=== PATIENT | male | born 1945 | race Caucasian/White ===

== ENCOUNTER → 2020-12-27 | Outpatient (CLI) | payer MEDICARE ==
[~2020-12-27] MED LIST: ATOR40TA75 PO; CASO50TA5 PO; FLOM0.4C39 PO; LOSA100T50 PO; MULT1TAB7 PO; OCUV1CAP4 PO; OSTE1TAB2 PO; PRIL20TA2 PO; PROL60SO SC; SYNT50TA PO
--- NOTE | 2020-12-27 11:58 | RADONC.CN ---
Radiation Oncology Hx/Consult Radiation Oncology Consult Date of Service: Dec 27, 2020 Pt Identifier Lul Smith is a 75 year old male with high risk prostate cancer cT1c [place] 4+5=9 (9/16 cores+) PSA 4.7. He was initially on active surveillance and more recently underwent MP MRI prostate which identified more extensive disease which was biopsied showing grade group 5. He is seen for consideration of RT and ADT. Diagnosis/Treatment History Oncologic History Followed by Mychal Corea ([facility]) for BPH, had TURP ~2009. Also what was initially low risk prostate cancer diagnosed in 2010 [place] 3+3=6 at that time. He was followed expectantly until 10/30/20 MRI showed PIRADS 4 left apex, new PIRADS 3 right apex. 55 cc gland. 12/12/20 underwent uronav fusion biopsy: [place] 4+5=9 left mid and apex 9/16 cores + overall Bone scan is pending 01/01/21 PSA history: 01/16/20 3.19 09/06/20 4.66 IPSS 19 MARISELA 18 Interval History Here with his . Has no significant ED at baseline. Has regular BMs daily no BRBPR. He has 2-3x nocturia, incomplete emptying, intermittent stream and daytime frequency/urgency. Is not taking an medication for this at present. Previously took flomax prior to TURP in 2009, TURP was very helpful at the time. Lives in [facility], retired from [employer], lived in [place] 40 years. Past Medical History: Anemia Osteoporosis CAD HTN HPL Hearing loss Shingles Hypothyroid Basal cell carcinoma GERD Past Surgical History: TURP Family History: No family history of cancer Social History: Never smoker Non-drinker Allergies / Meds Home Meds Active Scripts Tamsulosin HCl (Flomax) 0.4 Mg Capsule, 1 CAP PO QPM, #90 CAP 3 Refills Prov:GERRY LAWTON MD 12/27/20 Bicalutamide (Casodex) 50 Mg Tablet, 1 TAB PO DAILY for 30 Days, #30 TAB Prov:GERRY LAWTON MD 12/27/20 Reported Medications Denosumab Injection (Prolia) 60 Mg/1 Ml Syringe, 60 MG SC, SYRINGE 12/27/20 Denosumab Injection (Prolia) 60 Mg/1 Ml Syringe, 1 SYRINGE SC ONCE for 1 Day, #1 ML 12/27/20 Lutein/Zeaxanthin (Ocuvite Lutein 25-5 mg Softgel) 1 Each Capsule, 1 CAP PO DAILY for 30 Days, #30 CAP 12/27/20 Multivitamin with Minerals (Multiple Vitamin) 1 Each Tablet, 1 TAB PO, TAB 12/27/20 Vit D3-Vit K/Berberine/Hops (Ostera Tablet) 1 Each Tablet, 1 TAB PO, TAB 12/27/20 Omeprazole Magnesium (Prilosec Otc) 20 Mg Tablet.dr, 20 MG PO DAILY for 30 Days, #30 TAB 12/27/20 Atorvastatin Calcium (Atorvastatin Calcium) 40 Mg Tablet, 40 MG PO QPM for 30 Days, #30 TAB 12/27/20 Levothyroxine Sodium (Synthroid) 50 Mcg Tablet, 1 TAB PO DAILY for 30 Days, #30 TAB 12/27/20 Losartan Potassium (Losartan Potassium) 100 Mg Tablet, 1 TAB PO DAILY for 30 Days, #30 TAB 12/27/20 Review of Systems Constitutional: Denies: Chills, Fever, Night Sweats Eyes: Denies: Pain, Vision change HEENT: Denies: Head Aches, Dysphagia, Sore Throat Skin: Denies: Rash, Lesions, Bruising Pulmonary: Denies: Dyspnea, Cough Cardiovascular: Denies: Chest Pain, Palpitations, Edema Gastrointestinal: Denies: Nausea, Vomiting, Abdominal Pain, Diarrhea Genitourinary: Reports: Frequency, Retention; Denies: Dysuria, Incontinence, Hematuria Hematologic: Denies: Bruising, Petecchia, Enlarged Lymph Nodes Endocrine: Denies: Cold Intolerance Musculoskeletal: Denies: Neck pain, Back pain Neurological: Denies: Weakness, Numbness, Incoordination Psych: Reports: Mood Normal; Denies: Memory Issues, Thoughts of Self Harm Vital Signs Ht 71" Wt 193 lbs BMI 27 T 97.2 P 67 RR 18 BP 154/93 O2 99 Pain 0 Fatigue 1 General Exam: Positive: Alert, Cooperative, No Acute Distress Eye Exam: Positive: PERRLA, EOMI ENT EXAM: Positive: Mucous membr. moist/pink, Pharynx Normal Neck Exam: Negative: Thyromegaly, Lymphadenopathy Chest Exam: Positive: Normal air movement; Negative: Rales, Rhonchi, Wheezing Heart Exam: Positive: Rate Normal, Regular Rhythm Abdomen Exam: Positive: Soft; Negative: Tenderness, Mass Male Exam: Positive: Lesions (Firm left lobe, no discrete nodule), Normal Sphincter Tone Extremity Exam: Negative: Edema, Tenderness Skin Exam: Positive: Nl turgor and temperature; Negative: Rash Neuro Exam: Positive: Normal Gait, Normal Speech, Cranial Nerves 3-12 NL Psych Exam: Positive: Mental status NL, Mood NL, Memory Intact Diagnostic and Laboratory Diagnostic Review Radiologic images, relevant labs and pathology reports were personally reviewed and discussed with Mr. Smith. Assessment and Plan Impression Mr. Smith is a 75 year old male with a history of high risk prostate cancer cT1c [place] 4+5=9 (9/16 cores+) PSA 4.7. He was initially on active surveillance and more recently underwent MP MRI prostate which identified more extensive disease which was biopsied showing grade group 5. He is seen for consideration of RT and ADT. Stage Stage IIIC T1c [place] 4+5=9 (9/16 cores+) PSA 4.7 Performance Status ECOG 0 Plan We had an extensive discussion with Mr. Smith regarding the diagnosis at hand and available therapeutic options. He has moderate LUTs, some semblance of BPH on MRI and exam. He would benefit from flomax now and hormonal downsizing with treatment. We discussed starting flomax QHS and I explained that ADT, which is part of the treatment plan will help his obstructive voiding. With respect to his disease, he has left-sided high risk cancer, no evidence of elenita involvement, and a pending bone scan next week to complete staging. If he proves to have localized disease, I recommend 78 Gy in 39 fractions with VMAT and coverage of the pelvic LN. In conjunction with this I will give 18 months of lupron. In preparation for lupron I will give him a month of casodex. He would also be an excellent candidate for a SpaceOAR, which will spare him the possibility of late rectal toxicity as well as contribute to preservation of his urinary and sexual function per the QOL results from the phase III. I will place fiducials for IGRT alignment in conjunction with SpaceOAR. He agreed to proceed with the above. We discussed the logistics of receiving radiation therapy in detail including the need for a 1-time planning session. We reviewed the side effects and periprocedural risk of SpaceOAR/fiducial placem ent, ADT; fatigue, cognitive changes, hot flashes, ED, loss of libido and weight gain, and RT; fatigue, irritative voiding symptoms, diarrhea, and late rectal bleeding. After discussing the risks, benefits and alternatives to radiation therapy, Mr. Smith was amenable to pursuing radiotherapy. All questions were answered to the patient's satisfaction. We instructed the patient that if there were any questions,concerns or changes in clinical status in the interim to contact us. Recommendations EBRT 78 Gy in 39 fractions 18 months ADT, 3 month lupron in ~2weeks SpaceOAR/fiducials in the coming weeks Casodex 50 mg daily Flomax 0.4 mg QHS Will follow up 01/01/21 bone scan (above contingent upon negative study) Billing Statement Total time of [65] minutes was spent preparing for the visit [4], obtaining HPI [6], examining the patient [3], reviewing diagnostic tests [4], discussing management options [33], coordinating care [4], and writing this note [11]. GERRY LAWTON MD Dec 27, 2020 11:58
== END ==
LOC: M ONCR 09:44
PROVIDERS: ATTEND General Practice
DX: C61 Malignant neoplasm of prostate (principal); R33.8 Other retention of urine; R31.9 Hematuria, unspecified; R30.0 Dysuria

== ENCOUNTER → 2021-01-01 | Outpatient (CLI) | payer MEDICARE ==
--- NOTE | 2021-01-01 15:58 | REP ---
INDICATION: PROSTATE CA. COMPARISON: None. TECHNIQUE/RADIOTRACER AND DOSE: 22.0 mCi of Technetium-99m MDP was injected and standard whole-body bone scanning is acquired. FINDINGS: There is a normal distribution of skeletal tracer with uptake in bilateral kidneys and in the urinary bladder. There is no evidence to suggest skeletal metastatic disease. IMPRESSION: Negative whole body radionuclide bone scan. <Electronically signed by Mateo Herman > 01/01/21 [id number]
== END ==
LOC: M RAD 10:55 → EDUNIT# 11:00
PROVIDERS: ATTEND Urology
DX: C61 Malignant neoplasm of prostate (principal)
CPT/HCPCS: 78306; A9503

== ENCOUNTER → 2021-01-15 | Outpatient (CLI) | payer MEDICARE ==
[~2021-01-15] MED LIST changes: +LEUPROLIDE 22.5MG KIT (LUPRON DEPOT) (FOR ONCOLOGY) IM ONE; +MYRB25TA PO
--- NOTE | 2021-01-15 14:20 | RADENCPD ---
Date/Time of Encounter Date of Encounter: Jan 15, 2021 Time of Encounter: 14:14 Encounter Met with Andrey prior to his first lupron injection. He explains he has been having a headache since he started flomax and casodex in the wake of our last visit. ACOSTA is 3/10 throughout the day and bothersome. Flomax has helped his urinary frequency and nocturia greatly however. I suspect this is from the flomax. I asked him to hold this for a day or two and see if his ACOSTA resolves. If it does, then we can consider switching to something like myrbetriq if he is interested to help his storage symptoms. If the ACOSTA persists, then it is likely the casodex which he can discontinue 1 week from today as by then the lupron injection should be in effect. He will let me know how this goes. With respect to Soni and his fiducials we are still awaiting insurance approval and will keep him apprised. We reviewed the side effects of ADT today and informed consent was obtained. 22.5 mg of Lupron was given. EGRRY LAWTON MD Jan 15, 2021 14:20
== END ==
LOC: M ONCR 12:52
PROVIDERS: ATTEND General Practice
DX: C61 Malignant neoplasm of prostate (principal)
CPT/HCPCS: 96401; G0463; J9217

== ENCOUNTER → 2021-02-06 | Outpatient (CLI) | payer MEDICARE ==
[~2021-02-06] MED LIST changes: +CIPR-249 PO; -LEUPROLIDE 22.5MG KIT (LUPRON DEPOT) (FOR ONCOLOGY) IM ONE; +LIDOCAINE 2% MDV 20ML VIAL XX ONE; +LIDOCAINE VISCOUS 2% SOLN 15ML UDC XX ONE; +LORA1TAB4 PO
--- NOTE | 2021-02-06 16:06 | ROOPDOC ---
[facility] Report Of Operation Report of Operation [facility] Radiation Oncology SpaceOAR & fiducial marker procedure note Name: Lul SmithZahraaB: 41 Procedure diagnosis: C61.0 Prostate cancer Procedure date/time: 02/06/2021 1200 Physician: Gerry Lawton MD Implant(s): Fiducials (2 seeds per needle): Qfix [id number] Lot# [id number] Exp 04/14/2024 Qty 2 SpaceOAR: [id number] Lot# [id number] Exp 09/27/22 Qty 1 Description of procedure: Informed consent for placement of SpaceOAR and fiducial marker seeds (4) was o btained pre-procedure. A timeout was completed. The patient was placed in the high lithotomy position and a rectal exam with 2% viscous lidocaine was completed. The rectal vault was empty of stool. A chlorhexidine prep of the perineal skin was completed. The trans-rectal ultrasound probe was introduced, the prostate and the rectal bulb were well visualized. 2% lidocaine was infiltrated in the skin and soft tissues of the perineum via a 23 Ga spinal needle under ultrasound guidance. 10cc of local was used. Patient tolerated the block well. Next, fiducial marker seeds were placed via pre-loaded 18 Ga needles under ultrasound guidance. 2 seeds were placed in the left base and apex, respectively. 2 seeds were placed in the right base and apex, respectively. A hydro-dissection of the space between the prostate and rectum was conducted by locating Denonvilliers fascia and injecting 10 cc of isotonic saline through an 18 Ga needle into the potential space there to develop a plane for SpaceOAR implant. Once the hydro-dissection was complete, the needle was withdrawn to mid-gland and the implant needle was then checked in the sagittal and transverse planes for optimal position and once verified, the SpaceOAR implant was placed. The implant was noted to have excellent positioning from base to near-apex. The needle was withdrawn and the ultrasound probe was removed from the rectum. Post procedure vital signs were WNL. The patient tolerated the procedure well without significant discomfort. EBL: <1cc Disposition: Simulation for radiation therapy will occur in the next 1-2 weeks The patient will complete antibiotic prophylaxis this evening GERRY LAWTON MD Feb 06, 2021 16:06
== END ==
LOC: M ONCR 14:52
PROVIDERS: ATTEND General Practice
DX: C61 Malignant neoplasm of prostate (principal)
CPT/HCPCS: 55874; 55876; A4648; C1889

== ENCOUNTER → 2021-02-24 | Outpatient (CLI) | payer MEDICARE ==
[~2021-02-24] MED LIST changes: -LIDOCAINE 2% MDV 20ML VIAL XX ONE; -LIDOCAINE VISCOUS 2% SOLN 15ML UDC XX ONE
--- NOTE | 2021-02-24 12:10 | REP ---
INDICATION: PALPABLE LESION POLE LT testis H/O PROSTATE CA. COMPARISON: None. TECHNIQUE: Real-time sonographic evaluation of scrotum and contents performed. FINDINGS: The testicles are normal in size and echotexture, right testicle measuring 4.5 x 2.2 x 2.7 cm and left testicle 4.5 x 1.9 x 3.1 cm. There is no testicular mass or torsion. Blood flow is seen in each testicle with duplex Doppler evaluation. Couple of scattered microcalcifications are seen in the right testicle with several noted in the left testicle. Small benign cystic changes are seen in the mediastinum testis on the right. The tail of the left epididymis is enlarged and heterogeneous with tiny calcifications, with increased flow with Doppler evaluation suggesting epididymitis. This is likely chronic. This corresponds to the palpable abnormality. IMPRESSION: No testicular mass or torsion. The palpable lump corresponds to the tail of the left epididymis which appears enlarged and heterogeneous with increased flow as discussed above. The findings are suggestive of chronic left-sided epididymitis. <Electronically signed by Boris García > 02/24/21 [id number]
== END ==
LOC: M RAD 11:23
PROVIDERS: ATTEND General Practice
DX: C61 Malignant neoplasm of prostate (principal); N50.89 Other specified disorders of the male genital organs

== ENCOUNTER → 2021-03-14 | Outpatient (RCR) | payer MEDICARE | LOC: M ONCR 02-24 10:16 | PROVIDERS: ATTEND General Practice | DX: C61 Malignant neoplasm of prostate (principal) ==

== ENCOUNTER 2021-04-11 12:39 | Outpatient (RCR) | payer MEDICARE | END 2021-04-14 | LOC: M ONCR 12:39 | PROVIDERS: ATTEND General Practice | DX: C61 Malignant neoplasm of prostate (principal) ==

== ENCOUNTER → 2021-04-17 | Outpatient (CLI) | payer MEDICARE ==
[~2021-04-17] MED LIST changes: +LEUPROLIDE 45MG SYRINGE KIT (LUPRON DEPOT) (FOR ONCOLOGY) IM ONE
--- NOTE | 2021-04-17 13:49 | RADENCPD ---
Date/Time of Encounter Date of Encounter: Apr 17, 2021 Time of Encounter: 13:47 Encounter Andrey presented after treatment for his next lupron injection. He is tolerating treatment with lupron well. We agreed to a 6 month injection this time, thus in October 2021 he will be @ 9 months of ADT (planned for 18 months). His VS are WNL. Informed consent for treatment was previously obtained. Lupron 45 mg was administered following time out and verification of medication patient and dose. GERRY LAWTON MD Apr 17, 2021 13:49
== END ==
LOC: M ONCR 12:53
PROVIDERS: ATTEND General Practice
DX: C61 Malignant neoplasm of prostate (principal)
CPT/HCPCS: 96372; J9217

== ENCOUNTER → 2021-04-21 | Outpatient (CLI) | payer MEDICARE ==
[~2021-04-21] MED LIST changes: +GABA-282 PO; -LEUPROLIDE 45MG SYRINGE KIT (LUPRON DEPOT) (FOR ONCOLOGY) IM ONE; +TAMS1CAP17 PO
[2021-04-21 14:11] LABS: APPEARANCE, URINE CLEAR (CLEAR); BACTERIA, URINE AUTO NEGATIVE (NEGATIVE); BILIRUBIN, URINE AUTO NEGATIVE (NEGATIVE); BLOOD, URINE BLOOD NEGATIVE (NEGATIVE); COLOR, URINE STRAW (YELLOW); GLUCOSE, URINE (UA) AUTO NEGATIVE (NEGATIVE); KETONE, URINE AUTO NEGATIVE (NEGATIVE); LEUKOCYTE ESTERASE, URINE AUTO NEGATIVE (NEGATIVE); NITRITE, URINE AUTO NEGATIVE (NEGATIVE); PROTEIN, URINE AUTO NEGATIVE (NEGATIVE); RBC, URINE AUTO 1 /HPF (0-3); SPECIFIC GRAVITY URINE AUTO 1.003 (1.002-1.035); SQUAMOUS EPITHELIAL CELL UR AU 0 /HPF (0-6); UROBILINOGEN, URINE AUTO 0.2 mg/dL (0.0-2.0); WBC, URINE AUTO 4 /HPF (0-3)
[2021-04-21 14:16] LABS: BASO # 0.1 10^3/uL (0.0-0.2); BASO % 1.5 % (0.0-1.0); EOS # 0.5 10^3/uL (0.0-0.5); EOS % 10.3 % (0.0-3.0); HEMATOCRIT 30.4 % (42.0-52.0); LYMPH # 0.5 10^3/uL (1.5-5.0); LYMPH % 10.1 % (24.0-44.0); MEAN CORPUSCULAR HEMOGLOBIN 33.8 pg (27.0-33.0); MEAN CORPUSCULAR HGB CONC 32.9 g/dl (32.0-36.5); MEAN CORPUSCULAR VOLUME 102.7 fl (80.0-96.0); MONO # 0.6 10^3/uL (0.0-0.8); MONO % 12.9 % (2.0-8.0); NEUTROPHILS % 64.8 % (36.0-66.0); PLATELET COUNT, AUTOMATED 187 10^3/uL (150-450); RED BLOOD COUNT 2.96 10^6/uL (4.30-6.10); WHITE BLOOD COUNT 4.6 10^3/uL (4.0-10.0)
== END ==
LOC: M ONCR 13:31
PROVIDERS: ATTEND General Practice
DX: C61 Malignant neoplasm of prostate (principal); Z79.899 Other long term (current) drug therapy

== ENCOUNTER 2021-05-12 12:47 | Outpatient (RCR) | payer MEDICARE | END 2021-05-14 | LOC: M ONCR 12:47 | PROVIDERS: ATTEND General Practice | DX: C61 Malignant neoplasm of prostate (principal) | CPT/HCPCS: 77300; 77336; 77338; 77385; 77402; G0463 ==

== ENCOUNTER → 2021-08-13 | Outpatient (CLI) | payer MEDICARE ==
[~2021-08-13] MED LIST changes: +PREG100CA PO
--- NOTE | 2021-08-13 11:50 | RADONC ---
Radiation Oncology Hx/FUP Radiation Oncology Hx/FUP Date of Service: Aug 13, 2021 Pt Identifier Lul Smith is a 76 year old male seen for a followup visit today at the department of radiation oncology for a history of high risk prostate cancer cT1c [place] 4+5=9 (9/16 cores+) PSA 4.7. He was initially on active surveillance and more recently underwent MP MRI prostate which identified more extensive disease which was biopsied showing grade group 5. He completed EBRT 78 Gy in 39 fractions from 03/10/21-05/12/21. He has been receiving ADT with plan for 18 months minimum treatment. Diagnosis/Treatment History Oncologic History Followed by Mychal Corea ([facility]) for BPH, had TURP ~2009. Also what was initially low risk prostate cancer diagnosed in 2010 [place] 3+3=6 at that time. He was followed expectantly until 10/30/20 MRI showed PIRADS 4 left apex, new PIRADS 3 right apex. 55 cc gland. 12/12/20 underwent uronav fusion biopsy: [place] 4+5=9 left mid and apex 07/31 cores + overall Bone scan 01/01/21 negative PSA history: 01/16/20 3.19 09/06/20 4.66 07/26/21 <0.02 Testosterone 07/26/21 <3 EBRT 78 Gy in 39 fractions 03/10/21-05/12/21 Lupron shots 01/15/21 22.5 mg 04/17/21 45 mg 10/17/21 plan for 22.5 mg Interval History Andrey has ongoing sciatica type pain in the legs. Starting in the buttocks and goes down the back of the legs. Causes some tingling in the toes. Attributes this to his 2nd lupron injection asking if he can have 3 month injections moving forward. Finds the gabapentin mildly helps, would consider something stronger. No urinary or bowel complaints. Current Therapy ADT min 18 months Stage Prostate cancer Stage IIIC T1c [place] 4+5=9 (9/16 cores+) PSA 4.7 Social History: Never smoker Non-drinker Allergies / Meds Allergies: Coded Allergies: No Known Allergies (Unverified , 01/15/21) Home Meds Active Scripts Pregabalin (Lyrica) 100 Mg Capsule, 1 CAP PO BID MDD 2 Capsule(s) for 30 Days, #60 CAP 3 Refills Prov:BUDNIK,GERRY MD 08/13/21 Reported Medications Tamsulosin Hcl (Tamsulosin HCl) 0.4 Mg Capsule, 1 CAP PO DAILY 05/06/21 Denosumab Injection (Prolia) 60 Mg/1 Ml Syringe, 1 SYRINGE SC ONCE for 1 Day, #1 ML 12/27/20 Lutein/Zeaxanthin (Ocuvite Lutein 25-5 mg Softgel) 1 Each Capsule, 1 CAP PO DAILY for 30 Days, #30 CAP 12/27/20 Multivitamin with Minerals (Multiple Vitamin) 1 Each Tablet, 1 TAB PO, TAB 12/27/20 Vit D3-Vit K/Berberine/Hops (Ostera Tablet) 1 Each Tablet, 1 TAB PO, TAB 12/27/20 Omeprazole Magnesium (Prilosec Otc) 20 Mg Tablet.dr, 20 MG PO DAILY for 30 Days, #30 TAB 12/27/20 Atorvastatin Calcium (Atorvastatin Calcium) 40 Mg Tablet, 40 MG PO QPM for 30 Days, #30 TAB 12/27/20 Levothyroxine Sodium (Synthroid) 50 Mcg Tablet, 1 TAB PO DAILY for 30 Days, #30 TAB 12/27/20 Losartan Potassium (Losartan Potassium) 100 Mg Tablet, 1 TAB PO DAILY for 30 Days, #30 TAB 12/27/20 Discontinued Scripts Gabapentin (Gabapentin) 300 Mg Capsule, 1 CAP PO TID for 30 Days, #90 CAP 3 Refills Prov:GERRY LAWTON MD 05/07/21 Review of Systems Review of Systems Constitutional: Reports: Fatigue; Denies: Night Sweats, Weight Loss Eyes: Denies: Pain HEENT: Denies: Head Aches Skin: Denies: Rash Pulmonary: Denies: Dyspnea, Cough Cardiovascular: Denies: Chest Pain Gastrointestinal: Denies: Abdominal Pain, Hematochezia Genitourinary: Denies: Dysuria, Incontinence Hematologic: Denies: Bruising Musculoskeletal: Reports: Back pain, Leg pain; Denies: Neck pain, Arm pain Neurological: Reports: Numbness; Denies: Weakness Psych: Reports: Mood Normal Physical Examination Vital Signs Wt 187 lbs General Exam: Alert, Cooperative, No Acute Distress Eye Exam: PERRLA, EOMI ENT EXAM: Atraumatic Neck Exam: Supple Chest Exam: Clear to auscultation Heart Exam: Rate Normal Extremity Exam: Negative: Edema Skin Exam: Nl turgor and temperature Neuro Exam: Normal Gait, Normal Speech, Cranial Nerves 3-12 NL Psych Exam: Mental status NL Diagnostic and Laboratory Diagnostic Review Radiologic images, relevant labs and pathology reports were personally reviewed and discussed with Mr. Smith. Assessment and Plan Impression Assessment Mr. Smith is a 76 year old male with a history of high risk prostate cancer cT1c [place] 4+5=9 (9/16 cores+) PSA 4.7. He was initially on active surveillance and more recently underwent MP MRI prostate which identified more extensive disease which was biopsied showing grade group 5. He completed EBRT 78 Gy in 39 fractions from 03/10/21-05/12/21. He has been receiving ADT with plan for 18 months minimum treatment. He is struggling with leg pain, radicular in nature, c/w sciatica. Probably exacerbated by lupron. Will switch to q3m injections per his preference, next due 10/17/21. Will switch to lyrica for his pain as gabapentin wears off between doses. He would like local urology referral so will send to Dr. Baron. PSA and testosterone are appropriately suppressed. He has hematology follow up for his anemia. Performance Status ECOG 1 Plan Follow up on 10/17/21 lupron 22.[address] Baron for urology follow up locally Start lyrica 100 mg BID D/c gabapentin Mr. Smith was encouraged to call with questions or concerns in the interim period. Billing Statement Total time of [28] minutes was spent preparing for the visit [2], obtaining HPI [6], examining the patient [2], reviewing diagnostic tests [3], discussing management options [6], coordinating care [2], and writing this note [7]. GERRY LAWTON MD Aug 13, 2021 11:50
== END ==
LOC: M ONCR 09:50
PROVIDERS: ATTEND General Practice
DX: C61 Malignant neoplasm of prostate (principal); M79.604 Pain in right leg; M79.605 Pain in left leg; Z79.899 Other long term (current) drug therapy; Z92.3 Personal history of irradiation

== ENCOUNTER → 2021-08-27 | Outpatient (CLI) | payer MEDICARE ==
[~2021-08-27] MED LIST changes: +CALC1TAB42 PO; +D31000TA2 PO; +IRON18TA PO; +LEVO75TA4 PO; +PROHANCE 279.3MG/ML 15ML VIAL As Ordered ONE; +PROHANCE 279.3MG/ML 5ML VIAL As Ordered ONE; +ZADI1DRO OU
--- NOTE | 2021-08-27 22:32 | REPVR ---
PROCEDURE INFORMATION: Exam: MR Lumbar Spine Without and With Contrast Exam date and time: 08/27/2021 12:16 PM Age: 76 years old Clinical indication: Low back pain; Additional info: Prostate CA TECHNIQUE: Imaging protocol: Multiplanar magnetic resonance images of the lumbar spine without and with intravenous contrast. Contrast material: PROHANCE; Contrast volume: 16 ml; Contrast route: INTRAVENOUS (IV); COMPARISON: NM Bone Scan Whole Body 01/01/2021 1:36 PM FINDINGS: S-shaped scoliosis of the lumbar spine. Well-marginated round 2.5 cm T1/T2 isointense and STIR hyperintense lesion within the L5 vertebral body, most likely reflecting vertebral body hemangioma. Modic type 1 edematous degenerative endplate change at L2-L3 and L4-L5. 1 cm grade 1 anterolisthesis of L5 on S1. Vertebral body heights are maintained. No cord compression. No abnormal cord signal. Conus medullaris terminates at the L1 level. Paravertebral soft tissues are unremarkable. L1-L2: Broad-based disc bulge causes mild bilateral foraminal narrowing. No significant canal narrowing. L2-L3: Broad-based disc bulge causes moderate bilateral foraminal narrowing. No significant canal narrowing. L3-L4: Broad-based disc bulge and facet hypertrophy cause moderate bilateral foraminal narrowing. No significant canal narrowing. L4-L5: Broad-based disc bulge and facet hypertrophy cause mild left and severe right foraminal narrowing with compression of the exiting right L4 nerve root. No significant canal narrowing. L5-S1: Combination of anterolisthesis, broad-based disc bulge, and facet hypertrophy cause severe bilateral foraminal narrowing with compression of the bilateral exiting L5 nerve roots. No significant canal narrowing. IMPRESSION: 1. Multilevel advanced spondylotic changes of the lumbar spine, as detailed above. 2. Well-marginated round 2.5 cm T1/T2 isointense and STIR hyperintense lesion within the L5 vertebral body, most likely reflecting vertebral body hemangioma Electronically signed by: Anoml Colby On 08/27/2021 22:31:22 PM
== END ==
LOC: M RAD 10:26
PROVIDERS: ATTEND Nurse Practitioner Adult Health
DX: C61 Malignant neoplasm of prostate (principal); M81.0 Age-related osteoporosis without current pathological fracture; M54.31 Sciatica, right side
CPT/HCPCS: 72158; A9576

== ENCOUNTER → 2021-10-28 | Outpatient (CLI) | payer MEDICARE ==
[~2021-10-28] MED LIST changes: +LEUPROLIDE 22.5MG KIT (LUPRON DEPOT) (FOR ONCOLOGY) IM ONE; -PROHANCE 279.3MG/ML 15ML VIAL As Ordered ONE; -PROHANCE 279.3MG/ML 5ML VIAL As Ordered ONE
--- NOTE | 2021-10-28 12:44 | RADONC ---
Radiation Oncology Hx/FUP Radiation Oncology Hx/FUP Date of Service: Oct 28, 2021 Pt Identifier Lul Smith is a 76 year old male seen for a followup visit today at the department of radiation oncology for a history of high risk prostate cancer cT1c Chris 4+5=9 (9/16 cores+) PSA 4.7. He was initially on active surveillance and more recently underwent MP MRI prostate which identified more extensive disease which was biopsied showing grade group 5. He completed EBRT 78 Gy in 39 fractions from 03/10/21-05/12/21. He has been receiving ADT with plan for 18 months minimum treatment. Diagnosis/Treatment History Oncologic History Followed by Mychal Corea ([facility]) for BPH, had TURP ~2009. Also what was initially low risk prostate cancer diagnosed in 2010 [place] 3+3=6 at that time. He was followed expectantly until 10/30/20 MRI showed PIRADS 4 left apex, new PIRADS 3 right apex. 55 cc gland. 12/12/20 underwent uronav fusion biopsy: Chris 4+5=9 left mid and apex 9/ cores + overall Bone scan 01/01/21 negative PSA history: 01/16/20 3.19 09/06/20 4.66 07/26/21 <0.02 08/26/21 <0.01 Testosterone 07/26/21 <3 EBRT 78 Gy in 39 fractions 03/10/21-05/12/21 Lupron shots 01/15/21 22.5 mg 04/17/21 45 mg 10/28/21 22.5 mg (prefers 3 month shots) Interval History Andrey reports that he did not tolerate lyrica well for his back pain, switched back to gabapentin. Both lyrica and gabapentin seem to cause ankle swelling. Recently had MRI of the spine, showing lumbar stenosis, which explains leg pain. Going to receive some epidural injections @ [facility] upcoming. Bowel and bladder function stable, no complaints. Appetite and weight stable. Current Therapy ADT 18 months planned Stage Prostate cancer Stage IIIC T1c Chris 4+5=9 (9/16 cores+) PSA 4.7 Social History: Never smoker Non-drinker Allergies / Meds Allergies: Coded Allergies: No Known Allergies (Unverified , 01/15/21) Home Meds Reported Medications Calcium Carbonate/Vitamin D3 (Calcium 500-Vit D3 600 Tablet) 1 Each Tablet, 1 TAB PO DAILY for 30 Days, #30 TAB 08/21/21 Ketotifen Fumarate (Zaditor) 5 Ml Drops, 1 DROP OU PRN, #5 ML 08/21/21 Iron (Iron) 18 Mg Tablet, 18 MG PO DAILY, TAB 08/21/21 Cholecalciferol (Vitamin D3) (Vitamin D3) 1,000 Unit Tablet, 2000 UNITS PO DAILY, TAB 08/21/21 Levothyroxine Sodium (LEVOTHYROXINE SODIUM) 75 Mcg Tablet, 1 TAB PO DAILY 08/21/21 Tamsulosin Hcl (Tamsulosin HCl) 0.4 Mg Capsule, 1 CAP PO DAILY 05/06/21 Denosumab Injection (Prolia) 60 Mg/1 Ml Syringe, 1 SYRINGE SC ONCE for 1 Day, #1 ML 12/27/20 Lutein/Zeaxanthin (Ocuvite Lutein 25-5 mg Softgel) 1 Each Capsule, 1 CAP PO DAILY for 30 Days, #30 CAP 12/27/20 Multivitamin with Minerals (Multiple Vitamin) 1 Each Tablet, 1 TAB PO DAILY, TAB 12/27/20 Omeprazole Magnesium (Prilosec Otc) 20 Mg Tablet.dr, 20 MG PO 5XW for 30 Days, #30 TAB 12/27/20 Atorvastatin Calcium (Atorvastatin Calcium) 40 Mg Tablet, 40 MG PO QPM for 30 Days, #30 TAB 12/27/20 Losartan Potassium (Losartan Potassium) 100 Mg Tablet, 1 TAB PO DAILY for 30 Days, #30 TAB 12/27/20 Review of Systems Review of Systems Gastrointestinal: Denies: Diarrhea, Hematochezia Genitourinary: Denies: Dysuria, Frequency, Retention Musculoskeletal: Reports: Back pain Neurological: Reports: Weakness, Numbness Psych: Reports: Mood Normal Physical Examination Vital Signs Wt 199 lbs T 96.3 P 60 RR 17 BP 144/83 O2 98% Pain 3 (back) Fatigue 0 General Exam: Alert, Cooperative, No Acute Distress Eye Exam: PERRLA, EOMI ENT EXAM: Atraumatic Neck Exam: Supple Abdomen Exam: Soft Extremity Exam: Edema (LE 2+ to the mid beltrán symmetric), Normal pulses; Negative: Tenderness Neuro Exam: Normal Gait, Normal Speech, Cranial Nerves 3-12 NL Psych Exam: Mental status NL Diagnostic and Laboratory Diagnostic Review Radiologic images, relevant labs and pathology reports were personally reviewed and discussed with Mr. Smith. Assessment and Plan Impression Assessment Mr. Smith is a 76 year old male with a history of high risk prostate cancer cT1c [place] 4+5=9 (9/16 cores+) PSA 4.7. He was initially on active surveillance and more recently underwent MP MRI prostate which identified more extensive disease which was biopsied showing grade group 5. He completed EBRT 78 Gy in 39 fractions from 03/10/21-05/12/21. He has been receiving ADT with plan for 18 months minimum treatment. PSA is appropriately suppressed as of last check. His low back pain has been shown to be the result of spinal stenosis for which he is receiving treatment in [place]. He can continue the gabapentin for now. We will proceed with a 22.5 mg lupron injection today, this will bring him to the 1 year jenna. Thus he will need 2 additional 3 month injections to complete therapy, next in January 2022. For his LE swelling, I suggest compression stockings. Performance Status ECOG 1 Plan Lupron 22.5 mg today Follow up in January 2022 for next injection Will obtain PSA at next visit Compression stocking for dependent LE edema Mr. Smith was encouraged to call with questions or concerns in the interim period. Billing Statement Total time of [22] minutes was spent preparing for the visit [1], obtaining HPI [5], examining the patient [2], reviewing diagnostic tests [2], discussing management options [4], coordinating care [1], and writing this note [7]. GERRY LAWTON MD Oct 28, 2021 12:44
== END ==
LOC: M ONCR 10:52
PROVIDERS: ATTEND General Practice
DX: C61 Malignant neoplasm of prostate (principal); M99.53 Intervertebral disc stenosis of neural canal of lumbar region; Z92.3 Personal history of irradiation; Z79.899 Other long term (current) drug therapy
CPT/HCPCS: G0463; J9217

== ENCOUNTER → 2022-02-03 | Outpatient (CLI) | payer MEDICARE ==
[~2022-02-03] MED LIST changes: -D31000TA2 PO; +LOSA100T45 PO; -LOSA100T50 PO; +VITA100093 PO
== END ==
LOC: M ONCR 09:49
PROVIDERS: ATTEND General Practice
DX: C61 Malignant neoplasm of prostate (principal)
CPT/HCPCS: G0463; J9217

== ENCOUNTER → 2022-04-20 | Outpatient (REF) | payer MEDICARE ==
[~2022-04-20] MED LIST changes: -LEUPROLIDE 22.5MG KIT (LUPRON DEPOT) (FOR ONCOLOGY) IM ONE
[2022-04-20 12:05] LABS: BASO % 1.1 % (0.0-1.0); EOS # 0.2 10^3/uL (0.0-0.5); EOS % 4.3 % (0.0-3.0); HEMATOCRIT 33.2 % (42.0-52.0); HEMOGLOBIN 11.1 g/dl (13.5-17.5); LYMPH # 0.7 10^3/uL (1.5-5.0); LYMPH % 19.2 % (24.0-44.0); MEAN CORPUSCULAR HEMOGLOBIN 33.2 pg (27.0-33.0); MEAN CORPUSCULAR HGB CONC 33.4 g/dl (32.0-36.5); MEAN CORPUSCULAR VOLUME 99.4 fl (80.0-96.0); MONO # 0.4 10^3/uL (0.0-0.8); MONO % 10.6 % (2.0-8.0); NEUTROPHILS # 2.4 10^3/uL (1.5-8.5); NEUTROPHILS % 64.5 % (36.0-66.0); PLATELET COUNT, AUTOMATED 157 10^3/uL (150-450); RED BLOOD COUNT 3.34 10^6/uL (4.30-6.10); WHITE BLOOD COUNT 3.7 10^3/uL (4.0-10.0)
== END ==
LOC: M LABDRAWC 11:09
PROVIDERS: ATTEND Specialist
DX: C61 Malignant neoplasm of prostate (principal)

== ENCOUNTER → 2022-04-21 | Outpatient (CLI) | payer MEDICARE ==
[~2022-04-21] VITALS: Ht 175.3 cm; Wt 82.7 kg
[2022-04-21] MEDS: LEUPROLIDE 22.5MG KIT (LUPRON DEPOT) (FOR ONCOLOGY) IM SCH (14:03)
[2022-04-21 14:21] VITALS: BP 127/85
== END ==
LOC: M ONCR 13:57
PROVIDERS: ATTEND General Practice
DX: C61 Malignant neoplasm of prostate (principal); Z92.3 Personal history of irradiation; Z79.818 Long term (current) use of other agents affecting estrogen receptors and estrogen levels
CPT/HCPCS: 96402; J9217

== ENCOUNTER → 2022-04-21 | Outpatient (CLI) | payer MEDICARE ==
[~2022-04-21] VITALS: Ht 175.3 cm; Wt 82.7 kg
[~2022-04-21] MED LIST changes: +ASPE4PAD TOP; +GABA-1171 PO; +METH-1164 PO; +TRAM50TA2 PO
[2022-04-21 13:50] VITALS: BP 127/85
== END ==
LOC: M ONCR 13:14
PROVIDERS: ATTEND General Practice
DX: C61 Malignant neoplasm of prostate (principal); R20.2 Paresthesia of skin; Z79.818 Long term (current) use of other agents affecting estrogen receptors and estrogen levels; Z79.899 Other long term (current) drug therapy; Z92.3 Personal history of irradiation

== ENCOUNTER 2022-05-23 04:26 | Emergency (ER) | payer MEDICARE ==
[~2022-05-23] VITALS: Ht 177.8 cm; Wt 82.1 kg
[~2022-05-23 04:26] MED LIST changes: -ASPE4PAD TOP; -GABA-1171 PO; -METH-1164 PO; -TRAM50TA2 PO
[2022-05-23] MEDS ORDERED: GABA-1171 PO (04:36)
[2022-05-23] MEDS ORDERED: ACETAMINOPHEN 500 MG TAB PO ONE (06:40)
[2022-05-23] MEDS ORDERED: methocarbamoL 750 MG TAB PO ONE (06:40)
[2022-05-23] MEDS ORDERED: ASPE4PAD TOP (08:46)
[2022-05-23] MEDS ORDERED: METH-1164 PO (08:46)
[2022-05-23 09:17] VITALS: BP 132/80
== END 2022-05-23 09:20 | disposition home or self-care (01) ==
LOC: M ED 04:26
DX: M54.17 Radiculopathy, lumbosacral region (principal); I10 Essential (primary) hypertension; E78.5 Hyperlipidemia, unspecified; E03.9 Hypothyroidism, unspecified; F17.200 Nicotine dependence, unspecified, uncomplicated; Z79.899 Other long term (current) drug therapy; Z79.890 Hormone replacement therapy; Z85.46 Personal history of malignant neoplasm of prostate; Z98.890 Other specified postprocedural states

== ENCOUNTER → 2022-08-21 | Outpatient (CLI) | payer MEDICARE ==
[~2022-08-21] MED LIST changes: +ASPE4PAD TOP; +GABA-1171 PO; +METH-1164 PO; +TRAM50TA2 PO
== END ==
LOC: M RAD 12:16
PROVIDERS: ATTEND Orthopaedic Surgery
DX: G57.22 Lesion of femoral nerve, left lower limb (principal); M41.86 Other forms of scoliosis, lumbar region; M43.17 Spondylolisthesis, lumbosacral region; M48.061 Spinal stenosis, lumbar region without neurogenic claudication

== ENCOUNTER → 2022-10-19 | Outpatient (REF) | payer MEDICARE ==
[~2022-10-19] MED LIST changes: +GABA600T4
[2022-10-19 19:14] LABS: PROSTATIC SPECIFIC AG MONITOR 0.04 NG/ML (< 4.00)
== END ==
LOC: M LAB REF 16:57
PROVIDERS: ATTEND General Practice
DX: R20.2 Paresthesia of skin (principal)

== ENCOUNTER → 2022-10-19 | Outpatient (REF) | payer MEDICARE ==
[2022-10-19 18:27] LABS: BASO # 0.1 10^3/uL (0.0-0.2); BASO % 1.3 % (0.0-1.0); EOS # 0.7 10^3/uL (0.0-0.5); EOS % 12.5 % (0.0-3.0); HEMATOCRIT 27.7 % (42.0-52.0); HEMOGLOBIN 8.9 g/dl (13.5-17.5); LYMPH # 0.5 10^3/uL (1.5-5.0); LYMPH % 9.9 % (24.0-44.0); MEAN CORPUSCULAR HEMOGLOBIN 33.8 pg (27.0-33.0); MEAN CORPUSCULAR HGB CONC 32.1 g/dl (32.0-36.5); MEAN CORPUSCULAR VOLUME 105.3 fl (80.0-96.0); MONO # 0.5 10^3/uL (0.0-0.8); MONO % 9.9 % (2.0-8.0); NEUTROPHILS # 3.5 10^3/uL (1.5-8.5); NEUTROPHILS % 65.1 % (36.0-66.0); PLATELET COUNT, AUTOMATED 255 10^3/uL (150-450); RED BLOOD COUNT 2.63 10^6/uL (4.30-6.10); WHITE BLOOD COUNT 5.4 10^3/uL (4.0-10.0)
[2022-10-19 19:12] LABS: ALBUMIN 2.7 G/DL (3.2-5.2); ALKALINE PHOSPHATASE 92 U/L (46-116); ALT/SGPT 22 U/L (7.0-40); AST/SGOT 28 U/L (<34); BILIRUBIN,TOTAL 0.4 MG/DL (0.3-1.2); BLOOD UREA NITROGEN 14 MG/DL (9-23); CALCIUM LEVEL 8.4 MG/DL (8.3-10.6); CARBON DIOXIDE LEVEL 26 MMOL/L (20-31); CHLORIDE LEVEL 105 MMOL/L (98-107); CREATININE FOR GFR 0.85 MG/DL (0.70-1.30); GLOMERULAR FILTRATION RATE > 60.0 (>42); GLUCOSE, FASTING 84 MG/DL (74-106); POTASSIUM SERUM 5.1 MMOL/L (3.5-5.1); SODIUM LEVEL 138 MMOL/L (136-145); TOTAL PROTEIN 5.3 G/DL (5.7-8.2)
== END ==
LOC: M LABDRAWC 16:52
PROVIDERS: ATTEND Specialist
DX: R20.2 Paresthesia of skin (principal); R97.20 Elevated prostate specific antigen [PSA]

== ENCOUNTER → 2022-10-19 | Outpatient (REF) | payer MEDICARE | LOC: M LABDRAWC 17:02 | DX: R20.2 Paresthesia of skin (principal) ==

== ENCOUNTER → 2022-10-21 | Outpatient (CLI) | payer MEDICARE | LOC: M ONCR 13:36 | PROVIDERS: ATTEND General Practice | DX: C61 Malignant neoplasm of prostate (principal); G57.92 Unspecified mononeuropathy of left lower limb; N52.9 Male erectile dysfunction, unspecified; R15.9 Full incontinence of feces; Z79.890 Hormone replacement therapy; Z79.899 Other long term (current) drug therapy; Z92.23 Personal history of estrogen therapy; Z92.29 Personal history of other drug therapy ==

== ENCOUNTER → 2022-11-02 | Outpatient (CLI) | payer MEDICARE | LOC: M PLAIMG 06:37 | PROVIDERS: ATTEND General Practice | DX: C61 Malignant neoplasm of prostate (principal); M51.84 Other intervertebral disc disorders, thoracic region ==

== ENCOUNTER → 2023-10-26 | Outpatient (CLI) | payer MEDICARE ==
[~2023-10-26] MED LIST changes: +LORA1TAB23 PO; -LORA1TAB4 PO; -LOSA100T45 PO; +LOSA100T46 PO
[2023-10-26 14:35] LABS: INR 1.12
[2023-10-26 14:36] LABS: PARTIAL THROMBOPLASTIN TIME 30.1 SECONDS (24.8-34.2)
== END ==
LOC: M LAB 13:20
PROVIDERS: ATTEND Specialist
DX: C61 Malignant neoplasm of prostate (principal); Z86.39 Personal history of other endocrine, nutritional and metabolic disease; Z51.89 Encounter for other specified aftercare

== ENCOUNTER → 2023-10-27 | Outpatient (CLI) | payer MEDICARE | LOC: M ONCR 12:47 | PROVIDERS: ATTEND General Practice | DX: C61 Malignant neoplasm of prostate (principal); Z71.2 Person consulting for explanation of examination or test findings; Z79.890 Hormone replacement therapy; Z79.899 Other long term (current) drug therapy; Z92.29 Personal history of other drug therapy; Z92.3 Personal history of irradiation ==

== ENCOUNTER → 2024-03-03 | Outpatient (REF) | payer MEDICARE | LOC: M SFHCCLAY 09:34 | PROVIDERS: ATTEND Urology | DX: R97.20 Elevated prostate specific antigen [PSA] (principal) ==

== ENCOUNTER → 2024-04-25 | Outpatient (REF) | payer MEDICARE ==
[2024-04-25 18:27] LABS: BASO # 0.1 10^3/uL (0.0-0.2); EOS # 0.1 10^3/uL (0.0-0.5); EOS % 1.4 % (0.0-3.0); HEMATOCRIT 34.4 % (42.0-52.0); LYMPH # 0.8 10^3/uL (1.5-5.0); LYMPH % 16.1 % (24.0-44.0); MEAN CORPUSCULAR HEMOGLOBIN 35.6 pg (27.0-33.0); MEAN CORPUSCULAR HGB CONC 34.9 g/dl (32.0-36.5); MEAN CORPUSCULAR VOLUME 102.1 fl (80.0-96.0); MONO # 0.4 10^3/uL (0.0-0.8); MONO % 8.7 % (2.0-8.0); NEUTROPHILS # 3.5 10^3/uL (1.5-8.5); NEUTROPHILS % 72.4 % (36.0-66.0); PLATELET COUNT, AUTOMATED 175 10^3/uL (150-450); RED BLOOD COUNT 3.37 10^6/uL (4.30-6.10); WHITE BLOOD COUNT 4.8 10^3/uL (4.0-10.0)
[2024-04-25 18:34] LABS: PROSTATIC SPECIFIC AG MONITOR 0.04 NG/ML (< 4.00)
[2024-04-25 18:37] LABS: ALBUMIN 3.9 G/DL (3.2-5.2); ALKALINE PHOSPHATASE 66 U/L (46-116); ALT/SGPT 26 U/L (7.0-40); AST/SGOT 26 U/L (<34); BILIRUBIN,TOTAL 0.8 MG/DL (0.3-1.2); BLOOD UREA NITROGEN 15 MG/DL (9-23); CALCIUM LEVEL 9.6 MG/DL (8.3-10.6); CARBON DIOXIDE LEVEL 28 MMOL/L (20-31); CHLORIDE LEVEL 99 MMOL/L (98-107); CREATININE FOR GFR 0.99 MG/DL (0.70-1.30); GLOMERULAR FILTRATION RATE > 60.0 (>35); GLUCOSE, FASTING 88 MG/DL (74-106); POTASSIUM SERUM 4.8 MMOL/L (3.5-5.1); SODIUM LEVEL 130 MMOL/L (136-145); TOTAL PROTEIN 6.2 G/DL (5.7-8.2)
== END ==
LOC: M LABDRAWC 17:34
PROVIDERS: ATTEND Specialist
DX: C61 Malignant neoplasm of prostate (principal)

== ENCOUNTER → 2024-10-23 | Outpatient (REF) | payer MEDICARE ==
[~2024-10-23] MED LIST changes: +GABA-1172 PO; +GABA-1490; -GABA-282 PO; -GABA600T4
[2024-10-23 19:16] LABS: BASO # 0.1 10^3/uL (0.0-0.2); BASO % 1.2 % (0.0-1.0); EOS # 0.2 10^3/uL (0.0-0.5); EOS % 3.3 % (0.0-3.0); HEMATOCRIT 35.6 % (42.0-52.0); LYMPH % 19.9 % (24.0-44.0); MEAN CORPUSCULAR HEMOGLOBIN 34.7 pg (27.0-33.0); MEAN CORPUSCULAR HGB CONC 33.7 g/dl (32.0-36.5); MEAN CORPUSCULAR VOLUME 102.9 fl (80.0-96.0); MONO # 0.5 10^3/uL (0.0-0.8); MONO % 9.2 % (2.0-8.0); NEUTROPHILS # 3.2 10^3/uL (1.5-8.5); NEUTROPHILS % 65.8 % (36.0-66.0); PLATELET COUNT, AUTOMATED 167 10^3/uL (150-450); RED BLOOD COUNT 3.46 10^6/uL (4.30-6.10); WHITE BLOOD COUNT 4.9 10^3/uL (4.0-10.0)
== END ==
LOC: M LABDRAWC 17:43
PROVIDERS: ATTEND Specialist
DX: C61 Malignant neoplasm of prostate (principal)

== ENCOUNTER → 2024-10-27 | Outpatient (CLI) | payer MEDICARE | LOC: M ONCR 12:44 | PROVIDERS: ATTEND General Practice | DX: C61 Malignant neoplasm of prostate (principal); M54.50 Low back pain, unspecified; G62.9 Polyneuropathy, unspecified; Z92.29 Personal history of other drug therapy; Z92.3 Personal history of irradiation ==

== ENCOUNTER → 2025-02-12 | Outpatient (CLI) | payer MEDICARE ==
[~2025-02-12] MED LIST changes: +DENO60SY2 SC; -PROL60SO SC
== END ==
LOC: M CLY 14:03
PROVIDERS: ATTEND Internal Medicine
DX: M54.9 Dorsalgia, unspecified (principal); M43.17 Spondylolisthesis, lumbosacral region

== ENCOUNTER → 2025-02-12 | Outpatient (REF) | payer MEDICARE ==
[2025-02-12 18:27] LABS: BASO # 0.1 10^3/uL (0.0-0.2); BASO % 1.3 % (0.0-1.0); EOS # 0.2 10^3/uL (0.0-0.5); EOS % 4.1 % (0.0-3.0); HEMATOCRIT 34.4 % (42.0-52.0); HEMOGLOBIN 11.8 g/dl (13.5-17.5); LYMPH # 0.9 10^3/uL (1.5-5.0); MEAN CORPUSCULAR HEMOGLOBIN 34.3 pg (27.0-33.0); MEAN CORPUSCULAR HGB CONC 34.3 g/dl (32.0-36.5); MONO # 0.4 10^3/uL (0.0-0.8); MONO % 10.6 % (2.0-8.0); NEUTROPHILS # 2.4 10^3/uL (1.5-8.5); NEUTROPHILS % 61.7 % (36.0-66.0); PLATELET COUNT, AUTOMATED 172 10^3/uL (150-450); RED BLOOD COUNT 3.44 10^6/uL (4.30-6.10); WHITE BLOOD COUNT 3.9 10^3/uL (4.0-10.0)
[2025-02-12 18:46] LABS: ALBUMIN 3.9 G/DL (3.2-5.2); ALKALINE PHOSPHATASE 65 U/L (40-129); ALT/SGPT 25 U/L (7.0-40); AST/SGOT 25 U/L (<34); BILIRUBIN,TOTAL 0.8 MG/DL (0.3-1.2); BLOOD UREA NITROGEN 6 MG/DL (9-23); CALCIUM LEVEL 9.2 MG/DL (8.3-10.6); CARBON DIOXIDE LEVEL 26 MMOL/L (20-31); CHLORIDE LEVEL 98 MMOL/L (98-107); CHOLESTEROL LEVEL 112 MG/DL (<200); CHOLESTEROL RISK RATIO 2.21 (<5); CREATININE FOR GFR 0.93 MG/DL (0.70-1.30); GLOMERULAR FILTRATION RATE > 60.0 (>35); GLUCOSE, FASTING 82 MG/DL (74-106); HDL CHOLESTEROL 50.5 MG/DL (>40); LDL CHOLESTEROL 54.7 MG/DL (<100); NON-HDL-C 61.5 MG/DL; POTASSIUM SERUM 4.7 MMOL/L (3.5-5.1); SODIUM LEVEL 131 MMOL/L (136-145); THYROID STIMULATING HORMONE 1.655 uIU/ML (0.55-4.78); TOTAL PROTEIN 6.5 G/DL (5.7-8.2); TRIGLYCERIDES LEVEL 34 MG/DL (<150)
== END ==
LOC: M LABDRAWC 17:39
PROVIDERS: ATTEND Internal Medicine
DX: I10 Essential (primary) hypertension (principal); E78.5 Hyperlipidemia, unspecified; E03.9 Hypothyroidism, unspecified

== ENCOUNTER → 2025-03-09 | Outpatient (REF) | payer MEDICARE ==
[~2025-03-09] MED LIST changes: -FLOM0.4C39 PO; +PREG-35 PO; -PREG100CA PO; +TAMS-18 PO
== END ==
LOC: M SFHCCLAY 08:03
PROVIDERS: ATTEND Urology
DX: Z85.46 Personal history of malignant neoplasm of prostate (principal)

== ENCOUNTER → 2025-03-21 | Outpatient (REF) | payer MEDICARE ==
[~2025-03-21] MED LIST changes: +B-1225002 SL
[2025-03-21 17:31] LABS: BASO # 0.1 10^3/uL (0.0-0.2); BASO % 1.2 % (0.0-1.0); EOS # 0.3 10^3/uL (0.0-0.5); EOS % 7.1 % (0.0-3.0); HEMATOCRIT 34.1 % (42.0-52.0); HEMOGLOBIN 11.7 g/dl (13.5-17.5); LYMPH # 0.7 10^3/uL (1.5-5.0); LYMPH % 15.3 % (24.0-44.0); MEAN CORPUSCULAR HGB CONC 34.3 g/dl (32.0-36.5); MEAN CORPUSCULAR VOLUME 99.1 fl (80.0-96.0); MONO # 0.5 10^3/uL (0.0-0.8); MONO % 11.6 % (2.0-8.0); NEUTROPHILS # 2.7 10^3/uL (1.5-8.5); NEUTROPHILS % 64.6 % (36.0-66.0); PLATELET COUNT, AUTOMATED 179 10^3/uL (150-450); RED BLOOD COUNT 3.44 10^6/uL (4.30-6.10); WHITE BLOOD COUNT 4.2 10^3/uL (4.0-10.0)
[2025-03-21 17:54] LABS: BILIRUBIN,TOTAL 0.8 MG/DL (0.3-1.2); CALCIUM LEVEL 9.4 MG/DL (8.3-10.6); CREATININE FOR GFR 0.92 MG/DL (0.70-1.30); GLOMERULAR FILTRATION RATE 83.1 (>35); POTASSIUM SERUM 4.4 MMOL/L (3.5-5.1); TOTAL PROTEIN 6.6 G/DL (5.7-8.2)
== END ==
LOC: M LABDRAWC 14:58
PROVIDERS: ATTEND Internal Medicine
DX: Z01.818 Encounter for other preprocedural examination (principal)

== ENCOUNTER 2025-04-03 06:00 | Day surgery (SDC) | payer MEDICARE ==
[~2025-04-03] VITALS: Ht 177.8 cm; Wt 82.0 kg
[2025-04-03] MEDS ORDERED: LR 1,000 ML IV SCH (07:00)
[2025-04-03] MEDS ORDERED: fentaNYL 100 MCG/2 ML INJECTION As Ordered ONE (07:06)
[2025-04-03] MEDS ORDERED: propofoL 200 MG/20 ML VIAL As Ordered ONE (07:07)
[2025-04-03] MEDS ORDERED: ROCURONIUM BROMIDE 50MG/5ML VIAL As Ordered ONE (07:07)
[2025-04-03] MEDS ORDERED: LIDOCAINE 2% 100MG/5ML SDV (FOR ANES.) As Ordered ONE (07:07)
[2025-04-03] MEDS ORDERED: MIDAZOLAM INJ 2MG/2ML VIAL As Ordered ONE (07:07)
[2025-04-03] MEDS ORDERED: SUGAMMADEX SODIUM 500 MG/5 ML VIAL As Ordered ONE (07:07)
[2025-04-03] MEDS ORDERED: KETOROLAC 30 MG/ML 1ML VIAL As Ordered ONE (07:08)
[2025-04-03] MEDS ORDERED: ACETAMINOPHEN 1000MG/100ML IV BAG As Ordered ONE (07:08)
[2025-04-03] MEDS ORDERED: ONDANSETRON 4MG 2ML VIAL As Ordered ONE (07:08)
[2025-04-03] MEDS: ACETAMINOPHEN 500 MG TAB PO ONE (10:00)
[2025-04-03] MEDS: ceFAZolin SOD 2 GM IV ONCE IV ONE (10:50)
[2025-04-03] MEDS ORDERED: fentaNYL 100 MCG/2 ML INJECTION IV PRN (12:35)
[2025-04-03] MEDS ORDERED: ONDANSETRON 4MG 2ML VIAL IV PRN (12:35)
[2025-04-03] MEDS ORDERED: MEPERIDINE 25 MG/ML 1ML VIAL IV PRN (12:35)
[2025-04-03] MEDS ORDERED: HYDROMORPHONE HCL 0.5 MG/ 0.5 ML SYRINGE IV PRN (12:35)
[2025-04-03] MEDS ORDERED: oxyCODONE 5MG TAB PO PRN (12:35)
[2025-04-03 13:31] VITALS: BP 129/67; TEMP 96.9; O2SAT 95
== END 2025-04-03 14:02 | disposition home or self-care (01) ==
LOC: M SDC 06:00
PROVIDERS: ATTEND Surgery
DX: K40.90 Unilateral inguinal hernia, without obstruction or gangrene, not specified as recurrent (principal); K66.0 Peritoneal adhesions (postprocedural) (postinfection); G47.9 Sleep disorder, unspecified; Z79.899 Other long term (current) drug therapy; Z87.891 Personal history of nicotine dependence
CPT/HCPCS: 49650; C1781; J0131; J0665; J0690; J1100; J1885; J2250; J2405; J3010; S2900

== ENCOUNTER → 2025-05-30 | Outpatient (CLI) | payer MEDICARE | LOC: M PLAIMG 10:15 | PROVIDERS: ATTEND Physician Assistant Surgical | DX: M51.362 Other intervertebral disc degeneration, lumbar region with discogenic back pain and lower extremity pain (principal); M47.27 Other spondylosis with radiculopathy, lumbosacral region; M46.1 Sacroiliitis, not elsewhere classified ==

== ENCOUNTER → 2025-06-01 | Outpatient (REF) | payer MEDICARE ==
[2025-06-01 12:42] LABS: BASO # 0.1 10^3/uL (0.0-0.2); BASO % 1.3 % (0.0-1.0); EOS # 0.2 10^3/uL (0.0-0.5); EOS % 5.8 % (0.0-3.0); LYMPH # 0.8 10^3/uL (1.5-5.0); LYMPH % 22.2 % (24.0-44.0); MONO # 0.4 10^3/uL (0.0-0.8); MONO % 10.6 % (2.0-8.0); NEUTROPHILS # 2.3 10^3/uL (1.5-8.5); NEUTROPHILS % 60.1 % (36.0-66.0); PLATELET COUNT, AUTOMATED 160 10^3/uL (150-450)
[2025-06-01 13:03] LABS: ALT/SGPT 30.0 U/L (7.0-40); AST/SGOT 36.0 U/L (<34); CALCIUM LEVEL 9.2 MG/DL (8.3-10.6); CARBON DIOXIDE LEVEL 28.0 MMOL/L (20-31); CHLORIDE LEVEL 99.0 MMOL/L (98-107); CREATININE FOR GFR 1.06 MG/DL (0.70-1.30); GLOMERULAR FILTRATION RATE 70.1 (>35); POTASSIUM SERUM 4.7 MMOL/L (3.5-5.1); PROSTATIC SPECIFIC AG MONITOR 0.06 NG/ML (< 4.00); SODIUM LEVEL 134.0 MMOL/L (136-145)
== END ==
LOC: M LABDRAWC 11:43
PROVIDERS: ATTEND Specialist
DX: C61 Malignant neoplasm of prostate (principal)

== ENCOUNTER → 2025-08-15 | Outpatient (REF) | payer MEDICARE ==
[~2025-08-15] MED LIST changes: +LEVO125T4
[2025-08-15 18:35] LABS: BASO # 0.1 10^3/uL (0.0-0.2); BASO % 1.8 % (0.0-1.0); EOS # 0.2 10^3/uL (0.0-0.5); EOS % 4.7 % (0.0-3.0); LYMPH # 0.8 10^3/uL (1.5-5.0); LYMPH % 19.9 % (24.0-44.0); MONO # 0.5 10^3/uL (0.0-0.8); MONO % 11.8 % (2.0-8.0); NEUTROPHILS # 2.4 10^3/uL (1.5-8.5); NEUTROPHILS % 61.5 % (36.0-66.0); PLATELET COUNT, AUTOMATED 175 10^3/uL (150-450)
[2025-08-15 18:38] LABS: ALT/SGPT 25.0 U/L (7.0-40); AST/SGOT 28.0 U/L (<34); CALCIUM LEVEL 9.2 MG/DL (8.3-10.6); CARBON DIOXIDE LEVEL 27.0 MMOL/L (20-31); CHLORIDE LEVEL 101.0 MMOL/L (98-107); CHOLESTEROL LEVEL 134.0 MG/DL (<200); CHOLESTEROL RISK RATIO 2.25 (<5); CREATININE FOR GFR 1.04 MG/DL (0.70-1.30); GLOMERULAR FILTRATION RATE 71.7 (>35); LDL CHOLESTEROL 68.7 MG/DL (<100); NON-HDL-C 74.7 MG/DL; POTASSIUM SERUM 4.9 MMOL/L (3.5-5.1); SODIUM LEVEL 134.0 MMOL/L (136-145); TRIGLYCERIDES LEVEL 30.0 MG/DL (<150)
== END ==
LOC: M LABDRAWC 17:23
PROVIDERS: ATTEND Internal Medicine
DX: I10 Essential (primary) hypertension (principal); E03.9 Hypothyroidism, unspecified; E78.5 Hyperlipidemia, unspecified

== ENCOUNTER → 2025-08-24 | Outpatient (CLI) | payer MEDICARE ==
[~2025-08-24] MED LIST changes: +ISOVUE-370 76% 100 ML VIAL As Ordered ONE
== END ==
LOC: M RAD 14:54
PROVIDERS: ATTEND Internal Medicine
DX: D37.4 Neoplasm of uncertain behavior of colon (principal); K59.00 Constipation, unspecified; N32.3 Diverticulum of bladder; N40.0 Benign prostatic hyperplasia without lower urinary tract symptoms
CPT/HCPCS: 74177; Q9967

== ENCOUNTER 2025-10-04 07:08 | Day surgery (SDC) | payer MEDICARE ==
[~2025-10-04] VITALS: Ht 177.8 cm; Wt 83.6 kg
[~2025-10-04 07:08] MED LIST changes: -ISOVUE-370 76% 100 ML VIAL As Ordered ONE; +SYNT25TA PO
[2025-10-04] MEDS ORDERED: LIDOCAINE 2% 100 MG/5 ML SDV (FOR ANES.) As Ordered ONE (07:25)
[2025-10-04 08:43] VITALS: TEMP 96.9
[2025-10-04 09:02] VITALS: BP 146/70; O2SAT 97
== END 2025-10-04 09:03 | disposition home or self-care (01) ==
LOC: M OPP 07:08
PROVIDERS: ATTEND Surgery
DX: R93.3 Abnormal findings on diagnostic imaging of other parts of digestive tract (principal); Z79.899 Other long term (current) drug therapy

== ENCOUNTER → 2025-10-24 | Outpatient (REF) | payer MEDICARE | LOC: M LABDRAWC 17:40 | PROVIDERS: ATTEND General Practice | DX: C61 Malignant neoplasm of prostate (principal) ==

== ENCOUNTER → 2025-10-26 | Outpatient (CLI) | payer MEDICARE | LOC: M ONCR 12:51 | PROVIDERS: ATTEND General Practice | DX: C61 Malignant neoplasm of prostate (principal); R53.83 Other fatigue; N52.9 Male erectile dysfunction, unspecified; Z92.29 Personal history of other drug therapy; Z92.3 Personal history of irradiation; Z79.899 Other long term (current) drug therapy | CPT/HCPCS: 84403; G0463 ==